=== PATIENT | male | born 1955 | race Hispanic/Latino ===

== ENCOUNTER 2017-07-01 02:31 | Emergency (ER) | payer MEDICAID ==
[2017-07-01 04:51] VITALS: BP 140/90
== END 2017-07-01 07:00 | disposition left against medical advice (07) ==
LOC: ED 02:31
DX: S69.90XA Unspecified injury of unspecified wrist, hand and finger(s), initial encounter (principal); Z53.21 Procedure and treatment not carried out due to patient leaving prior to being seen by health care provider

== ENCOUNTER 2018-01-17 05:02 | Emergency (ER) | payer MEDICAID ==
[2018-01-17] MEDS ORDERED: NACL 0.9% 1000 ML 1,000 ML IV ONE (05:12)
[2018-01-17 05:33] LABS: Basophils % (Auto) 0.4 % (0.0-1.8); Eosinophils # (Auto) 0.3 K/mm3 (0.0-0.4); Eosinophils % (Auto) 3.4 % (0.0-4.3); Hematocrit 38.2 % (35.5-45.6); Lymphocytes # (Auto) 1.6 K/mm3 (1.2-5.4); Lymphocytes % (Auto) 19.7 % (13.4-35.0); Mean Corpuscular HGB Conc 34 % (32-34); Mean Corpuscular Hemoglobin 30 pg (28-32); Mean Corpuscular Volume 88 fl (84-94); Monocytes # (Auto) 0.7 K/mm3 (0.0-0.8); Monocytes % (Auto) 9.1 % (0.0-7.3); Platelet Count 164 K/mm3 (140-440); Red Blood Count 4.37 M/mm3 (3.65-5.03); Red Cell Distribution Width 13.9 % (13.2-15.2)
[2018-01-17 05:51] LABS: Bacteria,Urine 1+ /HPF (Negative); Bilirubin,Urine NEG (Negative); Blood,Urine MOD (Negative); Color,Urine Yellow (Yellow); Mucus,Urine 2+ /HPF
[2018-01-17 05:55] LABS: Alanine Aminotransferase 13 units/L (7-56); Albumin 4.3 g/dL (3.9-5); BUN/Creatinine Ratio 14; Blood Urea Nitrogen 15 mg/dL (9-20); Calcium 9.7 mg/dL (8.4-10.2); Hemolysis Index 2
[2018-01-17] MEDS ORDERED: ZOFRAN IV ONE (07:43)
[2018-01-17] MEDS ORDERED: MORPHINE IV ONE (07:43)
[2018-01-17] MEDS ORDERED: TORADOL IV ONE (07:43)
--- NOTE | 2018-01-17 08:12 | Emergency Department Report ---
ED Abdominal Pain HPI - General Chief Complaint: Abdominal Pain Stated Complaint: ABD PAIN Time Seen by Provider: 01/17/18 07:37 Source: patient Mode of arrival: Ambulatory Limitations: No Limitations - History of Present Illness Initial Comments: 62-year-old male with a past medical history of hypertension, cardiac stent placement, hypertension, and hyperlipidemia presents to house with complaints of abdominal pain since 4 AM. Pain is above the umbilicus and right lower quadrant. Pain is intermittent, resident palpation, moderate intensity, and without alleviating factors. Patient is unable to characterize the pain. Patient complains of nausea without vomiting. He denies fever, dysuria, hematuria, diarrhea, melena, hematochezia, previous abdominal surgeries. Severity scale (0 -10): 10 - Related Data Home Medications Medication Instructions Recorded Confirmed Last Taken Aspirin EC [Halfprin EC] 81 mg PO QDAY 11/30/13 01/17/18 01/16/18 Atorvastatin (Nf) [Lipitor (Nf)] 20 mg PO QDAY 11/30/13 01/17/18 01/16/18 Clopidogrel [Plavix] 75 mg PO QDAY 11/30/13 01/17/18 01/16/18 Indomethacin 50 mg PO Q12HR PRN 11/30/13 01/17/18 01/16/18 Isosorbide Mononitrate [Isosorbide 30 mg PO QDAY 11/30/13 01/17/18 01/16/18 Mononitrate ER (IMDUR)] Metoprolol [Lopressor] 25 mg PO DAILY 11/30/13 01/17/18 01/16/18 Nitroglycerin [Nitrostat] 0.4 mg SL Q5MIN PRN 01/17/18 01/17/18 Unknown Previous Rx's Medication Instructions Recorded Last Taken Type HYDROcodone/APAP 5-325 [[place] 1 each PO Q6HR PRN #20 tablet 01/17/18 Unknown Rx 5/325] Ibuprofen [Motrin] 800 mg PO Q8HR PRN #30 tablet 01/17/18 Unknown Rx Tamsulosin [Flomax] 0.4 mg PO QDAY #14 cap 01/17/18 Unknown Rx Allergies Allergy/AdvReac Type Severity Reaction Status Date / Time Penicillins Allergy Swelling Verified 11/30/13 20:01 ED Review of Systems ROS: Stated complaint: ABD PAIN Other details as noted in HPI Comment: All other systems reviewed and negative ED Past Medical Hx - Past Medical History Previous Medical History?: Yes Hx Hypertension: Yes Hx CVA: No Hx Heart Attack/AMI: No Hx Congestive Heart Failure: No Hx Diabetes: No Hx Deep Vein Thrombosis: No Hx Pulmonary Embolism: No Hx GERD: No Hx Liver Disease: No Hx Renal Disease: No Hx Sickle Cell Disease: No Hx Arthritis: No Hx Headaches / Migraines: No Hx Seizures: No Hx Kidney Stones: No Hx Psychiatric Treatment: No Hx Asthma: No Hx COPD: No Hx Tuberculosis: No Hx Dementia: No Hx HIV: No Additional medical history: gout, hyperlipidemia - Surgical History Past Surgical History?: Yes Hx Coronary Stent: Yes (x1) Hx Open Heart Surgery: No Hx Pacemaker: No Hx Internal Defibrillator: No Hx Cholecystectomy: No Hx Appendectomy: No Hx Breast Surgery: No Additional Surgical History: ankle surgery - Social History Smoking Status: Never Smoker Substance Use Type: None - Medications Home Medications: Home Medications Medication Instructions Recorded Confirmed Last Taken Type Aspirin EC [Halfprin EC] 81 mg PO QDAY 11/30/13 01/17/18 01/16/18 History Atorvastatin (Nf) [Lipitor (Nf)] 20 mg PO QDAY 11/30/13 01/17/18 01/16/18 History Clopidogrel [Plavix] 75 mg PO QDAY 11/30/13 01/17/18 01/16/18 History Indomethacin 50 mg PO Q12HR PRN 11/30/13 01/17/18 01/16/18 History Isosorbide Mononitrate [Isosorbide 30 mg PO QDAY 11/30/13 01/17/18 01/16/18 History Mononitrate ER (IMDUR)] Metoprolol [Lopressor] 25 mg PO DAILY 11/30/13 01/17/18 01/16/18 History HYDROcodone/APAP 5-325 [[place] 1 each PO Q6HR PRN #20 tablet 01/17/18 Unknown Rx 5/325] Ibuprofen [Motrin] 800 mg PO Q8HR PRN #30 tablet 01/17/18 Unknown Rx Nitroglycerin [Nitrostat] 0.4 mg SL Q5MIN PRN 01/17/18 01/17/18 Unknown History Tamsulosin [Flomax] 0.4 mg PO QDAY #14 cap 01/17/18 Unknown Rx ED Physical Exam - General Limitations: No Limitations - Other Other exam information: General: No limitations, patient is alert in no acute distress Head exam: Atraumatic, normocephalic Eyes exam: Normal appearance, nonicteric sclera ENT: Moist mucous membrane, normal oropharynx Neck exam: Normal inspection, full range of motion, no meningismus nontender Respiratory exam: Clear to auscultation bilateral, no wheezes, rales, crackles Cardiovascular: Normal rate and rhythm, normal heart sounds Abdomen: Soft, nondistended, suprapubic and right lower quadrant tenderness, with normal bowel sounds, no rebound, or guarding Extremity: Full range of motion normal inspection no deformity Back: Normal Inspection, full range of motion, no tenderness Neurologic: Alert, oriented x3, cranial nerves intact, no motor or sensory deficit Psychiatric: normal affect, normal mood Skin: Warm, dry, intact ED Course Vital Signs 01/17/18 01/17/18 01/17/18 05:10 07:37 07:45 Temperature 98.9 F Pulse Rate 48 L 52 L Respiratory 18 13 Rate Blood Pressure 147/90 Blood Pressure 166/89 [Right] O2 Sat by Pulse 98 95 Oximetry 01/17/18 01/17/18 01/17/18 08:01 09:01 09:15 Temperature Pulse Rate 51 L 56 L 52 L Respiratory 12 19 17 Rate Blood Pressure 157/86 148/86 149/82 Blood Pressure [Right] O2 Sat by Pulse 97 97 96 Oximetry 01/17/18 01/17/18 01/17/18 09:30 09:45 10:00 Temperature Pulse Rate 45 L 48 L 45 L Respiratory 15 13 13 Rate Blood Pressure 140/74 137/77 133/78 Blood Pressure [Right] O2 Sat by Pulse 94 96 96 Oximetry 01/17/18 01/17/18 01/17/18 10:15 10:31 10:45 Temperature Pulse Rate 50 L 56 L 56 L Respiratory 13 11 L 13 Rate Blood Pressure 137/77 134/83 144/81 Blood Pressure [Right] O2 Sat by Pulse 98 98 Oximetry 01/17/18 01/17/18 01/17/18 11:00 11:15 11:31 Temperature Pulse Rate 56 L 53 L 51 L Respiratory 12 15 11 L Rate Blood Pressure 141/82 149/83 158/82 Blood Pressure [Right] O2 Sat by Pulse 99 99 99 Oximetry 01/17/18 01/17/18 11:45 12:00 Temperature Pulse Rate 55 L 49 L Respiratory 16 14 Rate Blood Pressure 152/85 144/76 Blood Pressure [Right] O2 Sat by Pulse 98 98 Oximetry - Consultations Consultation #1: 01/17/18 11:43 (paged placed at 10:05 am) case d/w Dr Treviño, pt will be sent to Urology as an outpatient Consultation #2: 01/17/18 12:25 Dr. Sheppard consultative regarding patient's aortic aneurysm repair. So aneurysm size and patient's body surface area he meets criteria for outpatient monitoring by cardiology does not a quite a cardiothoracic surgeon at this time ED Medical Decision Making - Lab Data Result diagrams: 01/17/18 05:15 01/17/18 05:15 Lab Results 01/17/18 01/17/18 01/17/18 Range/Units 05:15 05:15 Unknown WBC 8.0 (4.5-11.0) K/mm3 RBC 4.37 (3.65-5.03) M/mm3 Hgb 13.0 (11.8-15.2) gm/dl Hct 38.2 (35.5-45.6) % MCV 88 (84-94) fl MCH 30 (28-32) pg MCHC 34 (32-34) % RDW 13.9 (13.2-15.2) % Plt Count 164 (140-440) K/mm3 Lymph % (Auto) 19.7 (13.4-35.0) % [place] % (Auto) 9.1 H (0.0-7.3) % Eos % (Auto) 3.4 (0.0-4.3) % Baso % (Auto) 0.4 (0.0-1.8) % Lymph # 1.6 (1.2-5.4) K/mm3 [place]itt # 0.7 (0.0-0.8) K/mm3 Eos # 0.3 (0.0-0.4) K/mm3 Baso # 0.0 (0.0-0.1) K/mm3 Seg Neutrophils % 67.4 (40.0-70.0) % Seg Neutrophils # 5.4 (1.8-7.7) K/mm3 Sodium 141 (137-145) mmol/L Potassium 3.8 (3.6-5.0) mmol/L Chloride 104.2 (98-107) mmol/L Carbon Dioxide 23 (22-30) mmol/L Anion Gap 18 mmol/L BUN 15 (9-20) mg/dL Creatinine 1.1 (0.8-1.5) mg/dL Estimated GFR > 60 ml/min BUN/Creatinine Ratio 14 % Glucose 108 H (75-100) mg/dL Calcium 9.7 (8.4-10.2) mg/dL Total Bilirubin 1.10 (0.1-1.2) mg/dL AST 15 (5-40) units/L ALT 13 (7-56) units/L Alkaline Phosphatase 125 (35-129) units/L Total Protein 7.0 (6.3-8.2) g/dL Albumin 4.3 (3.9-5) g/dL Albumin/Globulin Ratio 1.6 % Urine Color Yellow (Yellow) Urine Turbidity Clear (Clear) Urine pH 5.0 (5.0-7.0) Ur Specific [place] 1.016 (1.003-1.030) Urine Protein 30 mg/dl (Negative) mg/dL Urine Glucose (UA) Neg (Negative) mg/dL Urine Ketones Neg (Negative) mg/dL Urine Blood Mod (Negative) Urine Nitrite Neg (Negative) Urine Bilirubin Neg (Negative) Urine Urobilinogen 2.0 (<2.0) mg/dL Ur Leukocyte Esterase Neg (Negative) Urine WBC (Auto) 3.0 (0.0-6.0) /HPF Urine RBC (Auto) 89.0 (0.0-6.0) /HPF Urine Bacteria (Auto) 1+ (Negative) /HPF Urine Mucus 2+ /HPF - Radiology Data Radiology results: report reviewed CT ABDOMEN AND PELVIS WITH CONTRAST INDICATION: RLQ, Periumbilical pain. Hematuria. COMPARISON: 01/17/2009 CT. FINDINGS: Abdomen and pelvis CT performed following intravenous administration of 100 cc of Omnipaque 300. LUNG BASES: Stable heart size. Coronary calcifications. Aneurysmal proximal ascending aorta with 4.6 cm AP caliber, axial series 2, image 3. ABDOMEN: Multiple right renal cortical hypodensities/cysts again noted, some subcentimeter while the largest interpolar is now approximately 3 x 2.4 cm, previously 2 x 1.2 cm. Mild right hydronephrosis and proximal hydroureter is new secondary to 0.6 cm right proximal ureteral calculus, axial image 110, series 2. A tiny, 1-2 mm right intrarenal calculus inferiorly also seen, axial image 88. Slight streaky right renal cortical enhancement. 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 Multiple left renal cortical cyst/hypodensities, the largest now 3.8 x 2 cm on axial image 69, series 4, previously 2.6 x 1.6 cm. Few tiny right hepatic calcified granulomas again noted as also pancreatic fatty replacement. Spleen, gallbladder, right adrenal, nonaneurysmal abdominal aorta with few atherosclerotic calcifications and IVC within normal limits. Left adrenal not clearly delineated. Nonopacified GI tract evaluation limited, though grossly nonobstructive. Hepatic flexure now noted positioned anterior to the liver as on axial image 46, amongst others. Normal appendix. Mild colonic stool. Tiny fat-containing umbilical hernia with a transverse neck of 0.4 cm. PELVIS: Stable prostate with small intrinsic calcifications. Mild diffuse urinary bladder wall exaggeration/thickening, though less prominent since the prior exam. Grossly unremarkable seminal vesicles and the rectosigmoid. No free fluid or significant adenopathy. Fat-containing 2.3 cm left proximal inguinal canal hernia, axial image 186, series 2 again noted. Mild multilevel spinal degenerative changes as spurring. Mild progression of bilateral hip degenerative changes/acetabular cysts. CONCLUSION: 1. New 6 mm right proximal ureteral calculus with mild hydronephrosis and proximal hydroureter, as described. 2. Various other findings as ascending aortic aneurysm, fatty pancreatic replacement, malrotated/ptotic left kidney, multiple bilateral renal cysts with slight increase in size of some, tiny right intrarenal calculus, old healed granulomatous disease, fat-containing left inguinal hernia and mild diffuse urinary bladder wall thickness (hypertrophy versus cystitis), amongst others, as detailed above. Please correlate. - Medical Decision Making renal colic, improved Toradol, Zofran, morphine, and Percocet Renal function normal, no signs of infection Ascending aortic aneurysm dilatation ?chronic as per medical history pt is asymptomatic case d/w ARVIND heart outp f/u and monitoring required Renal cysts and chronic bowel rotated deformed and ptotic with kidney f/u with urology, cardiology, pmd rec. - Differential Diagnosis renal colic, appendicitis, diverticulitis, gastritis Critical Care Time: No Critical care attestation.: If time is entered above; I have spent that time in minutes in the direct care of this critically ill patient, excluding procedure time. ED Disposition Clinical Impression: Renal colic on right side, Ascending aorta dilatation, Renal cyst Disposition: TO HOME OR SELFCARE Is pt being admited?: No Does the pt Need Aspirin: No Condition: Stable Instructions: Renal Colic (ED), Thoracic Aortic Aneurysm (ED) Additional Instructions: You have a significantly sized 6 mm right kidney stone which is causing your pain, nausea, and vomiting. This stone may or may not pass without surgical treatment. Follow-up is very important for further evaluation to ensure passage of the stone. He also incidentally kidney cyst and an aneurysm of your aorta which have been identified previously. Follow-up with your auto motor mechanic for further monitoring of your aneurysm. Take the copy of the report provided to you doctors for follow-up. Prescriptions: HYDROcodone/APAP 5-325 [[place] 5/325] 1 each PO Q6HR PRN #20 tablet PRN Reason: Pain , Severe (7-10) Ibuprofen [Motrin] 800 mg PO Q8HR PRN #30 tablet PRN Reason: Pain, Moderate (4-6) Tamsulosin [Flomax] 0.4 mg PO QDAY #14 cap Referrals: TAVARES TREVIÑO MD [Staff Physician] - 3-5 Days [facility], [Primary Care Provider] - 3-5 Days [facility] [Provider Group] - 3-5 Days Time of Disposition: 12:27
--- NOTE | 2018-01-17 09:34 | Cat Scan Report ---
CT ABDOMEN AND PELVIS WITH CONTRAST INDICATION: RLQ, Periumbilical pain. Hematuria. COMPARISON: 01/17/2009 CT. FINDINGS: Abdomen and pelvis CT performed following intravenous administration of 100 cc of Omnipaque 300. LUNG BASES: Stable heart size. Coronary calcifications. Aneurysmal proximal ascending aorta with 4.6 cm AP caliber, axial series 2, image 3. ABDOMEN: Multiple right renal cortical hypodensities/cysts again noted, some subcentimeter while the largest interpolar is now approximately 3 x 2.4 cm, previously 2 x 1.2 cm. Mild right hydronephrosis and proximal hydroureter is new secondary to 0.6 cm right proximal ureteral calculus, axial image 110, series 2. A tiny, 1-2 mm right intrarenal calculus inferiorly also seen, axial image 88. Slight streaky right renal cortical enhancement. 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 Multiple left renal cortical cyst/hypodensities, the largest now 3.8 x 2 cm on axial image 69, series 4, previously 2.6 x 1.6 cm. Few tiny right hepatic calcified granulomas again noted as also pancreatic fatty replacement. Spleen, gallbladder, right adrenal, nonaneurysmal abdominal aorta with few atherosclerotic calcifications and IVC within normal limits. Left adrenal not clearly delineated. Nonopacified GI tract evaluation limited, though grossly nonobstructive. Hepatic flexure now noted positioned anterior to the liver as on axial image 46, amongst others. Normal appendix. Mild colonic stool. Tiny fat-containing umbilical hernia with a transverse neck of 0.4 cm. PELVIS: Stable prostate with small intrinsic calcifications. Mild diffuse urinary bladder wall exaggeration/thickening, though less prominent since the prior exam. Grossly unremarkable seminal vesicles and the rectosigmoid. No free fluid or significant adenopathy. Fat-containing 2.3 cm left proximal inguinal canal hernia, axial image 186, series 2 again noted. Mild multilevel spinal degenerative changes as spurring. Mild progression of bilateral hip degenerative changes/acetabular cysts. CONCLUSION: 1. New 6 mm right proximal ureteral calculus with mild hydronephrosis and proximal hydroureter, as described. 2. Various other findings as ascending aortic aneurysm, fatty pancreatic replacement, malrotated/ptotic left kidney, multiple bilateral renal cysts with slight increase in size of some, tiny right intrarenal calculus, old healed granulomatous disease, fat-containing left inguinal hernia and mild diffuse urinary bladder wall thickness (hypertrophy versus cystitis), amongst others, as detailed above. Please correlate. Thank you for the opportunity to participate in this patient's care.
[2018-01-17] MEDS ORDERED: PERCOCET 5/325 PO ONE (10:26)
[2018-01-17 12:21] VITALS: BP 144/76
== END 2018-01-17 12:46 | disposition home or self-care (01) ==
LOC: ED 05:02
DX: N23 Unspecified renal colic (principal); N28.1 Cyst of kidney, acquired; I77.819 Aortic ectasia, unspecified site; I10 Essential (primary) hypertension; M10.9 Gout, unspecified; E78.5 Hyperlipidemia, unspecified; Z95.818 Presence of other cardiac implants and grafts; Z88.0 Allergy status to penicillin
CPT/HCPCS: 36415; 74177; 80053; 81001; 85025; 96361; 96374; 96375; 99283; J1885; J2270; J2405; J7030; Q9967

== ENCOUNTER 2018-12-19 21:09 | Emergency (ER) | payer MEDICAID ==
--- NOTE | 2018-12-19 21:47 | Event Note ---
ED Screening Note ED Screening Note: eklutna abd pain hx htn hpld cad stents see meds in bag no n/v/d This initial assessment/diagnostic orders/clinical plan/treatment(s) is/are subject to change based on patients health status, clinical progression and re- assessment by fellow clinical providers in the ED. Further treatment and workup at subsequent clinical providers discretion. Patient/guardian urged not to elope from the ED as their condition may be serious if not clinically assessed and managed. Initial orders include: labs urinalysis
[2018-12-19 22:57] LABS: Hematocrit 34.7 % (35.5-45.6); Hemoglobin 11.9 gm/dl (11.8-15.2); Mean Corpuscular HGB Conc 34 % (32-34); Mean Corpuscular Hemoglobin 30 pg (28-32); Mean Corpuscular Volume 88 fl (84-94); Platelet Count 180 K/mm3 (140-440); Red Blood Count 3.92 M/mm3 (3.65-5.03); Red Cell Distribution Width 14.1 % (13.2-15.2)
[2018-12-19 23:08] LABS: Bilirubin,Urine NEG (Negative); Blood,Urine SM (Negative); Color,Urine Amber (Yellow); Mucus,Urine FEW /HPF; Protein,Urine <15 mg/dL mg/dL (Negative)
[2018-12-19 23:13] LABS: Calcium 9.3 mg/dL (8.4-10.2)
--- NOTE | 2018-12-19 23:22 | XRay Report ---
ABDOMEN 3 VIEW(S) INDICATION / CLINICAL INFORMATION: pain. COMPARISON: None available. FINDINGS: There is no acute pleural or pulmonary disease on the chest x-ray. TUBES / LINES: None. BOWEL GAS PATTERN: No significant abnormality. FREE AIR / EXTRALUMINAL GAS: None seen. ADDITIONAL FINDINGS: No significant additional findings. IMPRESSION: 1. No significant abnormality. Signer Name: Kenny Zaman MD Signed: 12/19/2018 11:17 PM Workstation Name: [id number]
[2018-12-20] MEDS ORDERED: BACTRIM DS PO ONE (02:01)
--- NOTE | 2018-12-20 02:04 | Emergency Department Report ---
ED Abdominal Pain HPI - General Chief Complaint: Abdominal Pain Stated Complaint: ABD PAIN Time Seen by Provider: 12/19/18 21:45 Source: patient Mode of arrival: Ambulatory Limitations: No Limitations - History of Present Illness Initial Comments: 63-year-old male with a past medical history of CAD with stent 1, hypertension, and kidney stones presented to the hospital complaining of abdominal pain today that resolved prior to M.D. evaluation. Patient thinks pain is due to constipation. Pain was generalized, rated 8/10 in intensity, and he is unable to qualify the pain. He reports that he was straining to have a bowel movement. He had good bowel movement output and denies melena, hematochezia, diarrhea, fever, nausea, vomiting, hematemesis, or dysuria. Denies bowel movement was earlier this week/3 days ago. Patient feels like he is constipated. He was seen and evaluated January 2018 for abdominal pain and CT showed a proximal right 6 mm ureteral calculus with mild hydronephrosis if the time. No mention of AAA on that report. Patient did have a proximal descending aortic aneurysm that was 4.6 cm in caliber. Patient denies chest pain. Patient denies any previous abdominal surgeries. Patient remains pain-free at this time. Patient has a scheduled appointment with his primary care Dr. Clarence Hollingsworth tomorrow - Related Data Home Medications Medication Instructions Recorded Confirmed Last Taken Aspirin EC [Halfprin EC] 81 mg PO QDAY 11/30/13 01/17/18 01/16/18 Atorvastatin (Nf) [Lipitor (Nf)] 20 mg PO QDAY 11/30/13 01/17/18 01/16/18 Clopidogrel [Plavix] 75 mg PO QDAY 11/30/13 01/17/18 01/16/18 Indomethacin 50 mg PO Q12HR PRN 11/30/13 01/17/18 01/16/18 Isosorbide Mononitrate [Isosorbide 30 mg PO QDAY 11/30/13 01/17/18 01/16/18 Mononitrate ER (IMDUR)] Metoprolol [Lopressor] 25 mg PO DAILY 11/30/13 01/17/18 01/16/18 Nitroglycerin [Nitrostat] 0.4 mg SL Q5MIN PRN 01/17/18 01/17/18 Unknown Previous Rx's Medication Instructions Recorded Last Taken Type HYDROcodone/APAP 5-325 [Crossnore 1 each PO Q6HR PRN #20 tablet 01/17/18 Unknown Rx 5/325] Ibuprofen [Motrin] 800 mg PO Q8HR PRN #30 tablet 01/17/18 Unknown Rx Tamsulosin [Flomax] 0.4 mg PO QDAY #14 cap 01/17/18 Unknown Rx Polyethylene Glycol 3350 [Miralax 17 gm PO QDAY PRN #10 packet 12/20/18 Unknown Rx 3350] Sulfamethoxazole/Trimethoprim 1 each PO BID #14 tablet 12/20/18 Unknown Rx [Bactrim DS TAB] Allergies Allergy/AdvReac Type Severity Reaction Status Date / Time Penicillins Allergy Swelling Verified 11/30/13 20:01 ED Review of Systems ROS: Stated complaint: ABD PAIN Other details as noted in HPI Comment: All other systems reviewed and negative ED Past Medical Hx - Past Medical History Hx Hypertension: Yes Hx CVA: No Hx Heart Attack/AMI: Yes (CAD, Angina) Hx Congestive Heart Failure: No Hx Diabetes: No Hx Deep Vein Thrombosis: No Hx Pulmonary Embolism: No Hx GERD: No Hx Liver Disease: No Hx Renal Disease: No Hx Sickle Cell Disease: No Hx Arthritis: No Hx Headaches / Migraines: No Hx Seizures: No Hx Kidney Stones: Yes Hx Psychiatric Treatment: No Hx Asthma: No Hx COPD: No Hx Tuberculosis: No Hx Dementia: No Hx HIV: No Additional medical history: gout, hyperlipidemia, Hearing Impaired, AAA - Surgical History Past Surgical History?: Yes Hx Coronary Stent: Yes (x1) Hx Open Heart Surgery: No Hx Pacemaker: No Hx Internal Defibrillator: No Hx Cholecystectomy: No Hx Appendectomy: No Hx Breast Surgery: No Additional Surgical History: ankle surgery - Social History Smoking Status: Never Smoker Substance Use Type: None - Medications Home Medications: Home Medications Medication Instructions Recorded Confirmed Last Taken Type Aspirin EC [Halfprin EC] 81 mg PO QDAY 11/30/13 01/17/18 01/16/18 History Atorvastatin (Nf) [Lipitor (Nf)] 20 mg PO QDAY 11/30/13 01/17/18 01/16/18 History Clopidogrel [Plavix] 75 mg PO QDAY 11/30/13 01/17/18 01/16/18 History Indomethacin 50 mg PO Q12HR PRN 11/30/13 01/17/1818 History Isosorbide Mononitrate [Isosorbide 30 mg PO QDAY 11/30/13 01/17/18 01/16/18 History Mononitrate ER (IMDUR)] Metoprolol [Lopressor] 25 mg PO DAILY 11/30/13 01/17/18 01/16/18 History HYDROcodone/APAP 5-325 [Crossnore 1 each PO Q6HR PRN #20 tablet 01/17/18 Unknown Rx 5/325] Ibuprofen [Motrin] 800 mg PO Q8HR PRN #30 tablet 01/17/18 Unknown Rx Nitroglycerin [Nitrostat] 0.4 mg SL Q5MIN PRN 01/17/18 01/17/18 Unknown History Tamsulosin [Flomax] 0.4 mg PO QDAY #14 cap 01/17/18 Unknown Rx Polyethylene Glycol 3350 [Miralax 17 gm PO QDAY PRN #10 packet 12/20/18 Unknown Rx 3350] Sulfamethoxazole/Trimethoprim 1 each PO BID #14 tablet 12/20/18 Unknown Rx [Bactrim DS TAB] ED Physical Exam - General Limitations: No Limitations - Other Other exam information: General: No limitations, patient is alert in no acute distress Head exam: Atraumatic, normocephalic Eyes exam: Normal appearance, pupils equal reactive to light, extraocular movements intact ENT: Moist mucous membrane, hard of hearing Neck exam: Normal inspection, full range of motion, no meningismus nontender Respiratory exam: Clear to auscultation bilateral, no wheezes, rales, crackles Cardiovascular: Normal rate and rhythm, normal heart sounds Abdomen: Soft, nondistended, and nontender, with normal bowel sounds, no rebound, or guarding Extremity: Full range of motion normal inspection no deformity Back: Normal Inspection, full range of motion, no tenderness Neurologic: Alert, oriented x3, cranial nerves intact, no motor or sensory deficit Psychiatric: normal affect, normal mood Skin: Warm, dry, intact ED Course Vital Signs 12/19/18 21:45 Temperature 98.3 F Pulse Rate 76 Respiratory 18 Rate Blood Pressure 107/73 O2 Sat by Pulse 96 Oximetry ED Medical Decision Making - Lab Data Result diagrams: 12/19/18 22:08 12/19/18 22:08 Lab Results 12/19/18 12/19/18 12/19/18 Range/Units 22:08 22:08 22:17 WBC 7.9 (4.5-11.0) K/mm3 RBC 3.92 (3.65-5.03) M/mm3 Hgb 11.9 (11.8-15.2) gm/dl Hct 34.7 L (35.5-45.6) % MCV 88 (84-94) fl MCH 30 (28-32) pg MCHC 34 (32-34) % RDW 14.1 (13.2-15.2) % Plt Count 180 (140-440) K/mm3 Sodium 140 (137-145) mmol/L Potassium 3.8 (3.6-5.0) mmol/L Chloride 104.6 (98-107) mmol/L Carbon Dioxide 24 (22-30) mmol/L Anion Gap 15 mmol/L BUN 17 (9-20) mg/dL Creatinine 1.6 H (0.8-1.5) mg/dL Estimated GFR 44 ml/min BUN/Creatinine Ratio 11 % Glucose 107 H (75-100) mg/dL Calcium 9.3 (8.4-10.2) mg/dL Total Bilirubin 0.80 (0.1-1.2) mg/dL AST 18 (5-40) units/L ALT 16 (7-56) units/L Alkaline Phosphatase 133 H (35-129) units/L Total Protein 7.5 (6.3-8.2) g/dL Albumin 4.0 (3.9-5) g/dL Albumin/Globulin Ratio 1.1 % Lipase 16 (13-60) units/L Urine Color [place] (Yellow) Urine Turbidity Clear (Clear) Urine pH 5.0 (5.0-7.0) Ur Specific [place] 1.017 (1.003-1.030) Urine Protein <15 mg/dl (Negative) mg/dL Urine Glucose (UA) Neg (Negative) mg/dL Urine Ketones Tr (Negative) mg/dL Urine Blood Sm (Negative) Urine Nitrite Neg (Negative) Urine Bilirubin Neg (Negative) Urine Urobilinogen 4.0 (<2.0) mg/dL Ur Leukocyte Esterase Tr (Negative) Urine WBC (Auto) 17.0 H (0.0-6.0) /HPF Urine RBC (Auto) 5.0 (0.0-6.0) /HPF Urine Mucus Few /HPF - Radiology Data Radiology results: report reviewed ABDOMEN 3 VIEW(S) INDICATION / CLINICAL INFORMATION: pain. COMPARISON: None available. FINDINGS: There is no acute pleural or pulmonary disease on the chest x-ray. TUBES / LINES: None. BOWEL GAS PATTERN: No significant abnormality. FREE AIR / EXTRALUMINAL GAS: None seen. ADDITIONAL FINDINGS: No significant additional findings. IMPRESSION: 1. No significant abnormality. - Medical Decision Making Pain resolved prior to M.D. evaluation inpatient is ready to go home has already called his ride. I convinced him to stay for evaluation and treatment to receive antibiotics for UTI. We also prescribed MiraLAX to use when necessary constipation. No significant constipation or signs of obstruction identified on abdominal x-ray. Patient be discharged with meds and a copy of his labs due to mild worsening renal function compared to previous. He has an appointment with his primary care doctor tomorrow. Bactrim provided in the ED - Differential Diagnosis constipation, obstruction, UTI Critical Care Time: No Critical care attestation.: If time is entered above; I have spent that time in minutes in the direct care of this critically ill patient, excluding procedure time. ED Disposition Clinical Impression: UTI (urinary tract infection), Abdominal pain, Worsening renal function Disposition: DC-01 TO HOME OR SELFCARE Is pt being admited?: No Does the pt Need Aspirin: No Condition: Stable Instructions: Impaired Kidney Function (ED), Urinary Tract Infection in Men (ED), Constipation (ED) Additional Instructions: Take the medication as prescribed. Follow up with your doctor or the clinic/d octor provided. Return if symptoms worsen as indicated by your discharge instructions. Labs show worsening kidney function. Take the copy of the labs provided to your doctor appointment for further evaluation. Prescriptions: Sulfamethoxazole/Trimethoprim [Bactrim DS TAB] 1 each PO BID #14 tablet Polyethylene Glycol 3350 [Miralax 3350] 17 gm PO QDAY PRN #10 packet PRN Reason: Constipation Referrals: CLARENCE HOLLINGSWORTH MD [Staff Physician] - 24 Hours Time of Disposition: 02:08
[2018-12-20 02:17] VITALS: BP 112/88
== END 2018-12-20 02:27 | disposition home or self-care (01) ==
LOC: ED 21:09
DX: N39.0 Urinary tract infection, site not specified (principal); N28.9 Disorder of kidney and ureter, unspecified; I25.2 Old myocardial infarction; E78.5 Hyperlipidemia, unspecified; Z79.899 Other long term (current) drug therapy; Z79.82 Long term (current) use of aspirin; Z86.79 Personal history of other diseases of the circulatory system; Z87.442 Personal history of urinary calculi; Z95.5 Presence of coronary angioplasty implant and graft; Z98.890 Other specified postprocedural states; Z87.39 Personal history of other diseases of the musculoskeletal system and connective tissue; Z88.0 Allergy status to penicillin
CPT/HCPCS: 36415; 74022; 80053; 81001; 83690; 85027; 87086